=== PATIENT | male | born 1970 | race Caucasian/White ===

== ENCOUNTER → 2020-10-17 14:23 | Outpatient (CLI) | payer OTHER, SELFPAY ==
--- NOTE | 2020-10-17 | DI.RAD.S_ITS ---
PROCEDURE: XR LUMBAR SPINE MIN 4V INDICATIONS: LOW BACK PAIN TECHNIQUE: 4 views of the lumbar spine acquired, including flexion and extension views. COMPARISON: None. FINDINGS: Bones: 5 nonrib-bearing vertebrae are present. There is grade 1 anterolisthesis of L5 on S1 secondary to L5 pars interarticularis defects. No vertebral body compression fractures. No suspicious bony lesions. There is severe degenerative disc disease at L5-S1. Soft tissues: Overlying bowel gas pattern is normal. No suspicious soft tissue calcifications. Flexion/extension: There is decreased range of motion with node change in alignment. IMPRESSION: 1. Grade 1 anterolisthesis of L5 on S1 secondary to L5 pars defects. 2. Severe degenerative disc disease at L5-S1. Dictated by: Theodora Neumann M.D. on 10/17/2020 at 17:09 Approved by: Theodora Neumann M.D. on 10/17/2020 at 17:11
--- NOTE | 2020-10-17 | DI.RAD.S_ITS ---
PROCEDURE: XR HIP W PEL LITA, 3V INDICATIONS: LOW BACK PAIN TECHNIQUE: AP pelvis with lateral view(s) of the both hip(s). COMPARISON: [facility], CR, XR LUMBAR SPINE MIN 4V, 10/17/2020, 14:41. FINDINGS: Bones: No fractures or dislocations. Pelvic ring appears intact. No suspicious bony lesions. Mild symmetric degenerative joint disease in hips and sacroiliac joints bilaterally. Severe degenerative disc disease at L5-S1. Soft tissues: The visualized bowel gas pattern is normal. No suspicious soft tissue calcifications. IMPRESSION: 1. 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 2. Severe degenerative disease at L5-S1. Dictated by: Theodora Neumann M.D. on 10/17/2020 at 17:05 Approved by: Theodora Neumann M.D. on 10/17/2020 at 17:08
== END ==
PROVIDERS: Referring Provider Neurological Surgery; Visit Provider Neurological Surgery
DX: M43.17 Spondylolisthesis, lumbosacral region (principal); M46.1 Sacroiliitis, not elsewhere classified; M47.27 Other spondylosis with radiculopathy, lumbosacral region; M54.5 Low back pain; M16.0 Bilateral primary osteoarthritis of hip; M51.36 Other intervertebral disc degeneration, lumbar region
CPT/HCPCS: 72110; 73522

== ENCOUNTER → 2021-01-23 13:08 | Outpatient (CLI) | payer OTHER, SELFPAY ==
[2021-01-23 16:04] LABS: Prostate Specific Antigen 2.11 ng/mL (0.10-4.00)
[2021-01-23 16:13] LABS: Alkaline Phosphatase 398 U/L (38-126); Aspartate Aminotransferase 62 IU/L (17-59)
== END ==
PROVIDERS: PCP Family Medicine; Referring Provider Urology; Visit Provider Urology
DX: C61 Malignant neoplasm of prostate (principal)
CPT/HCPCS: 36415; 84075; 84153; 84450